=== PATIENT | male | born 1965 | race Caucasian/White ===

== ENCOUNTER 2021-08-01 09:42 | Emergency (ER) | payer BC ==
[~2021-08-01] VITALS: Ht 175.3 cm; Wt 87.3 kg
[~2021-08-01 09:42] MED LIST: FISH OIL1 IU; GINSENG100 M2; LISINOPRIL10 MG; MULTIVITAMIN1 SGL PO; THISTLE; VITAMIN B COMPL1 T16 PO; VITAMIN D32000 UNI1
[2021-08-01] MEDS ORDERED: EZETIMIBE10 M1 (10:02)
[2021-08-01] MEDS ORDERED: REPATHA SU140 MG/1 M SQ (10:02)
[2021-08-01] MEDS ORDERED: ASPIRIN 81M81 MG/TA2 PO (10:03)
[2021-08-01] MEDS ORDERED: ROSUVASTATIN CA40 MG PO (10:03)
[2021-08-01 10:13] LABS: BASO # 0.02 K/mm3 (0.02-0.10); EOS # 0.03 K/mm3 (0.04-0.40); EOS % 0.6 % (0.0-4.0); HEMATOCRIT 47.2 % (42.0-52.0); HEMOGLOBIN 15.7 g/dL (13.5-18.0); LYMPH# 1.16 K/mm3 (1.50-4.00); MEAN CELL VOLUME 91 fl (78-100); MEAN CORPUSCULAR HEMOGLOBIN 30 pg (27-31); MEAN CORPUSCULAR HGB CONC 33 g/dL (33-37); MONO # 0.47 K/mm3 (0.20-0.80); NEU # 3.68 K/mm3 (1.40-6.50); PLATELET COUNT 161 K/mm3 (130-400); RED BLOOD COUNT 5.17 M/mm3 (4.20-5.60); RED CELL DISTRIBUTION WIDTH 13.9 % (11.5-14.5); WHITE BLOOD COUNT 5.4 K/mm3 (4.8-10.8)
[2021-08-01 10:25] LABS: ALBUMIN 4.4 g/dL (3.5-5.0)
[2021-08-01 10:26] LABS: POTASSIUM 4.3 mmol/L (3.5-5.1)
[2021-08-01 10:27] LABS: CALCIUM 9.5 mg/dL (8.3-10.5)
[2021-08-01 10:30] LABS: TOTAL BILIRUBIN 0.6 mg/dL (0.2-1.2)
[2021-08-01 10:33] LABS: PROTHROMBIN TIME 10.5 SECONDS (9.0-12.0)
[2021-08-01] MEDS ORDERED: PRILOSEC 20MG20 MG PO (11:25)
[2021-08-01] MEDS ORDERED: NITROSTAT0.4 M1 SL (11:25)
[2021-08-01 11:31] VITALS: BP 137/92
[2021-08-01 12:05] LABS: URINE WBC 0 /hpf (0-3)
[2021-08-01 12:40] LABS: PH-URINE 6.5 (5.0 - 8.0); URINE APPEARANCE CLEAR; URINE BILIRUBIN NEGATIVE (NEGATIVE); URINE BLOOD NEGATIVE (NEGATIVE); URINE COLOR LT YELLOW; URINE GLUCOSE NEGATIVE (NEGATIVE); URINE KETONE NEGATIVE (NEGATIVE); URINE LEUKOCYTE ESTERASE NEGATIVE (NEGATIVE); URINE NITRATE NEGATIVE (NEGATIVE); URINE PROTEIN(semi-quant) NEGATIVE (NEGATIVE); URINE UROBILINOGEN NORMAL (NORMAL)
== END 2021-08-01 11:35 | disposition home or self-care (01) ==
LOC: ED 09:42
PROVIDERS: Physician Assistant
DX: F41.9 Anxiety disorder, unspecified (principal); K21.9 Gastro-esophageal reflux disease without esophagitis; Z28.310 Unvaccinated for COVID-19; Z95.1 Presence of aortocoronary bypass graft